=== PATIENT | male | born 1990 | race Two or more races ===

== ENCOUNTER 2019-09-14 10:28 | Emergency (ER) | payer OTHER ==
[~2019-09-14] VITALS: Ht 175.3 cm; Wt 79.5 kg
[2019-09-14 11:07] VITALS: BP 109/51
--- NOTE | 2019-09-14 11:11 | PHYS DOC ---
Past Medical History Past Medical History: No Pertinent History Past Surgical History: No Surgical History Smoking Status: Never Smoker Alcohol Use: None Drug Use: None Adult General Chief Complaint Chief Complaint: SORE THROAT HPI HPI Patient is a 29-year-old male who presents to the emergency department for evaluation. He states he began having a sore throat yesterday along with some fever and myalgias. He has not had any runny nose or cough. He was seen in the emergency department at [facility], and has paperwork that states he was diagnosed with strep pharyngitis and was given a prescription for Pen-Vee K. He states he has taken 2 doses but is not better. He states he had difficulty sleeping last night secondary to pain in his throat. He has several family members in the emergency department with similar symptoms. He has not taken any [id number] analgesics at this time. He denies any shortness of breath, headache, vision changes, mental status changes, or any other concerns. He has not had any voice changes. Patient states that they did do a strep swab at the hospital yesterday, but he is uncertain if the test was positive or negative. Review of Systems Review of Systems Constitutional: Denies lethargy or chills [] Eyes: Denies change in visual acuity, redness, or eye pain [] HENT: Denies nasal congestion. Reports sore throat [] Respiratory: Denies cough or shortness of breath [] GI: Denies abdominal pain, nausea, vomiting, bloody stools or diarrhea [] : Denies dysuria or hematuria [] Musculoskeletal: Denies back pain or joint pain [] Integument: Denies rash or skin lesions [] Neurologic: Denies headache, focal weakness or sensory changes [] Endocrine: Denies polyuria or polydipsia [] All other systems were reviewed and found to be within normal limits, except as documented in this note. Current Medications Current Medications Current Medications Medications (Trade) Dose Ordered Sig/[place] Start Time Stop Time Status Last Admin Dose Admin Ibuprofen (Motrin) 600 mg 1X ONCE 09/14/19 11:15 09/14/19 11:21 DC 09/14/19 11:26 600 MG Allergies Allergies Allergies Coded Allergies Type Severity Reaction Last Updated Verified No Known Drug Allergies 04/22/15 No Physical Exam Physical Exam PHYSICAL EXAM: CONSTITUTIONAL: Well developed, well nourished HEAD: normocephalic, atraumatic EENT: PERRL, EOMI. Conjunctivae normal color, sclerae non-icteric; moist mucous membranes. The oropharynx is erythematous, the tonsils are enlarged bilaterally, there is no peritonsillar edema, there is no exudate. Airway is patent. Uvula is midline. There is mildly tender submandibular lymphadenopathy bilaterally. Voice is normal. NECK: Supple, non-tender; no meningismus. LUNGS: Lungs CTA, breathing even and unlabored. Normal air movement. HEART: Regular rate and rhythm, no murmur CHEST: No deformity; non-tender ABDOMEN: The abdomen is soft, and non-tender, no masses or bruits. EXTREM: Normal ROM; no deformity, no calf tenderness. Normal pulses palpable in all extremities. There is no pedal edema. SKIN: No rash; no diaphoresis NEURO: Alert; normal speech and cognition; CN's grossly intact; strength grossly intact without focal deficit. BACK: No CVA TTP. Current Patient Data Vital Signs Vital Signs Date Time Temp Pulse Resp B/P (MAP) Pulse Ox O2 Delivery O2 Flow Rate FiO2 09/14/19 11:07 100.1 130 18 109/51 (70) 97 Room Air 100.1 Lab Values Laboratory Tests Test 09/14/19 11:00 Influenza Type A Antigen Negative (NEGATIVE) Influenza Type B Antigen Negative (NEGATIVE) Group A Streptococcus Rapid Negative (NEGATIVE) EKG EKG [] Radiology/Procedures Radiology/Procedures [] Course & Med Decision Making Course & Med Decision Making Pertinent Labs studies reviewed. (See chart for details) [] Discussed home care and expectant management, the need for close follow-up and return precautions. Dragon Disclaimer Dragon Disclaimer This electronic medical record was generated, in whole or in part, using a voice recognition dictation system. Departure Departure Impression: Primary Impression: Pharyngitis Disposition: HOME, SELF-CARE Condition: STABLE Referrals: VISHNU HERNANDEZ MD (PCP) Patient Instructions: Viral and Bacterial Pharyngitis Additional Instructions: Tylenol and Motrin as needed for fever and pain. Warm liquids and soups may help improve your symptoms. Continue taking your previously prescribed antibiotics. MAUREEN PRICE MD Sep 14, 2019 11:11
[2019-09-14] MEDS ORDERED: IBUPROFEN 200 MG TABLET. PO ONE (11:15)
[2019-09-14 11:52] LABS: INFLUENZA A PATIENT NEGATIVE (NEGATIVE); INFLUENZA B PATIENT NEGATIVE (NEGATIVE)
== END 2019-09-14 12:29 | disposition home or self-care (01) ==
LOC: ER 10:28
DX: J02.9 Acute pharyngitis, unspecified (principal); R50.9 Fever, unspecified; M79.10 Myalgia, unspecified site
CPT/HCPCS: 87070; 87804; 87880; 99283

== ENCOUNTER 2020-01-22 12:55 | Emergency (ER) | payer OTHER ==
[~2020-01-22] VITALS: Ht 175.3 cm; Wt 77.2 kg
[2020-01-22] MEDS ORDERED: IBUP-1007 PO (13:34)
[2020-01-22] MEDS ORDERED: KETOROLAC 30 MG/ML VIAL. IM ONE (13:45)
--- NOTE | 2020-01-22 13:53 | PHYS DOC ---
Past Medical History Past Medical History: No Pertinent History Past Surgical History: No Surgical History Smoking Status: Never Smoker Alcohol Use: None Drug Use: None General Adult EDM: Chief Complaint: LOWER BACK PAIN OR INJURY HPI: HPI: Patient is a 29 year old male presenting with chief complaint of back pain. Happened yesterday while he was lifting a box at work diffuse bilateral lower back no numbness no tingling no bowel bladder incontinence no other risk factors or concerns. No direct trauma has not tried anything for relief Review of Systems: Review of Systems: Constitutional: Denies fever or chills. [] Eyes: Denies change in visual acuity. [] HENT: Denies nasal congestion or sore throat. [] Respiratory: Denies cough or shortness of breath. [] Neurologic: Denies headache, focal weakness or sensory changes. [] Endocrine: Denies polyuria or polydipsia. [] Lymphatic: Denies swollen glands. [] Psychiatric: Denies depression or anxiety. [] Heart Score: Risk Factors: Risk Factors: DM, Current or recent (<one month) smoker, HTN, HLP, family history of CAD, obesity. Risk Scores: Score 0 - 3: 2.5% MACE over next 6 weeks - Discharge Home Score 4 - 6: 20.3% MACE over next 6 weeks - Admit for Clinical Observation Score 7 - 10: 72.7% MACE over next 6 weeks - Early Invasive Strategies Current Medications: Current Medications Medications (Trade) Dose Ordered Sig/[facility] Start Time Stop Time Status Last Admin Dose Admin Ketorolac Tromethamine (Toradol 30mg Vial) 30 mg 1X ONCE 01/22/20 13:45 01/22/20 13:46 DC Allergies: Allergies: Allergies Coded Allergies Type Severity Reaction Last Updated Verified No Known Drug Allergies 04/22/15 No Physical Exam: PE: Constitutional: Well developed, well nourished, no acute distress, non-toxic appearance. [] HENT: Normocephalic, atraumatic, bilateral external ears normal, oropharynx moist, no oral exudates, nose normal. [] Eyes: PERRLA, EOMI, conjunctiva normal, no discharge. [] Neck: Normal range of motion, no tenderness, supple, no stridor. [] Pulmonary: Normal respiratory effort no increased work of breathing no obvious chest wall trauma Abdomen: Bowel sounds normal, soft, no tenderness, no masses, no pulsatile masses. [] Skin: Warm, dry, no erythema, no rash. [] Back: There is some diffuse tenderness no focal midline tenderness no trauma identified Extremities: No tenderness, no cyanosis, no clubbing, ROM intact, no edema. [] Neurologic: Alert and oriented X 3, normal motor function, normal sensory function, no focal deficits noted. [] Psychologic: Affect normal, judgement normal, mood normal. [] Current Patient Data: Vital Signs: Vital Signs Date Time Temp Pulse Resp B/P (MAP) Pulse Ox O2 Delivery O2 Flow Rate FiO2 01/22/20 13:15 97.9 85 15 156/83 (107) 97 97.9 EKG: EKG: [] Radiology/Procedures: Radiology/Procedures: [] Course & Med Decision Making: Course & Med Decision Making Pertinent Labs and Imaging studies reviewed. (See chart for details) [] Patient is a well-appearing young male with back pain after lifting a box no neurologic features at all there is good strength and sensation noted throughout bilateral lower extremities and no signs of cauda equina by history or physical. Prescription for Motrin was provided and patient was given a work note for couple days off of work instructed on the importance of increasing core strength and using good body mechanics when lifting. [place] Disclaimer: [place] Disclaimer: This electronic medical record was generated, in whole or in part, using a voice recognition dictation system. Departure Departure Impression: Primary Impression: Back pain Disposition: HOME, SELF-CARE Condition: STABLE Patient Instructions: Back Pain, Adult, [id number]-[id number] Scripts Ibuprofen (IBUPROFEN) 600 Mg Tablet 600 MG PO PRN Q6HRS PRN for INFLAMMATION, #15 TAB Prov: MATTI LANDIN MD 01/22/20 Justicifation of Admission Dx: Justifications for Admission: Justification of Admission Dx: N/A MATTI LANDIN MD Jan 22, 2020 13:53
[2020-01-22 14:04] VITALS: BP 138/78
== END 2020-01-22 14:05 | disposition home or self-care (01) ==
LOC: ER 12:55
DX: M54.5 Low back pain (principal); X50.0XXA Overexertion from strenuous movement or load, initial encounter; Y93.89 Activity, other specified; Y92.69 Other specified industrial and construction area as the place of occurrence of the external cause; Y99.0 Civilian activity done for income or pay
CPT/HCPCS: 96372; 99283; J1885

== ENCOUNTER 2020-03-06 16:45 | Emergency (ER) | payer OTHER ==
[~2020-03-06] VITALS: Ht 175.3 cm; Wt 75.3 kg
[~2020-03-06 16:45] MED LIST: IBUP-1007 PO
[2020-03-06 17:23] VITALS: BP 142/85
[2020-03-06] MEDS ORDERED: METH4TAB2 PO (17:36)
[2020-03-06] MEDS ORDERED: AZIT250T6 PO (17:36)
[2020-03-06] MEDS ORDERED: IBUP-1007 PO (17:36)
--- NOTE | 2020-03-06 17:40 | PHYS DOC ---
Past Medical History Past Medical History: No Pertinent History Past Surgical History: No Surgical History Smoking Status: Never Smoker Alcohol Use: None Drug Use: None General Adult EDM: Chief Complaint: ABSCESS HPI: HPI: Patient is a 29 year old male who presents with was eating popcorn 2 days ago and bit the left inner cheek very hard. He states since then he has had pain and some facial swelling in the cheek. There is only tenderness to the inner mucous membrane with palpation. There is no hardness, no cellulitis, no abscess pocket, no fevers. Rates his pain 8 out of 10. He denies any dental pain. I can see when looking inside the mouth where his teeth bit the inside of his mouth. There is no drainage or open sore. No trismus. No swelling of the throat no redness or exudates. Uvula midline and nonswollen. Review of Systems: Review of Systems: Constitutional: Denies fever or chills. [] Eyes: Denies change in visual acuity. [] HENT: Denies nasal congestion or sore throat. Left cheek swelling. [] Respiratory: Denies cough or shortness of breath. [] Cardiovascular: Denies chest pain or edema. [] GI: Denies abdominal pain, nausea, vomiting, bloody stools or diarrhea. [] : Denies dysuria. [] Musculoskeletal: Denies back pain or joint pain. [] Integument: Denies rash. Left inner cheek mucosal tooth garza and tenderness, [] Neurologic: Denies headache, focal weakness or sensory changes. [] Endocrine: Denies polyuria or polydipsia. [] Lymphatic: Denies swollen glands. [] Psychiatric: Denies depression or anxiety. [] Heart Score: Risk Factors: Risk Factors: DM, Current or recent (<one month) smoker, HTN, HLP, family history of CAD, obesity. Risk Scores: Score 0 - 3: 2.5% MACE over next 6 weeks - Discharge Home Score 4 - 6: 20.3% MACE over next 6 weeks - Admit for Clinical Observation Score 7 - 10: 72.7% MACE over next 6 weeks - Early Invasive Strategies Allergies: Allergies: Allergies Coded Allergies Type Severity Reaction Last Updated Verified No Known Drug Allergies 04/22/15 No Physical Exam: PE: Constitutional: Well developed, well nourished, no acute distress, non-toxic appearance. [] HENT: Normocephalic, atraumatic, bilateral external ears normal, oropharynx moist, no oral exudates, nose normal. Left inner cheek mucosal teeth garza. [] Eyes: PERRLA, EOMI, conjunctiva normal, no discharge. [] Neck: Normal range of motion, no tenderness, supple, no stridor. [] Cardiovascular:Heart rate regular rhythm, no murmur [] Lungs & Thorax: Bilateral breath sounds clear to auscultation [] Abdomen: Bowel sounds normal, soft, no tenderness, no masses, no pulsatile ma sses. [] Skin: Warm, dry, no erythema, no rash. Left cheek swelling 1+.[] Back: No tenderness, no CVA tenderness. [] Extremities: No tenderness, no cyanosis, no clubbing, ROM intact, no edema. [] Neurologic: Alert and oriented X 3, normal motor function, normal sensory function, no focal deficits noted. [] Psychologic: Affect normal, judgement normal, mood normal. [] EKG: EKG: [] Radiology/Procedures: Radiology/Procedures: [] Course & Med Decision Making: Course & Med Decision Making Pertinent Labs and Imaging studies reviewed. (See chart for details) See HPI. Speaks in full clear sentences. Alert and oriented x4. Ambulatory with a steady gait. Patient is given a Medrol Dosepak, Z-Flaquito, ibuprofen. He is to follow-up with his primary care provider. I have spoken to Dr Benoit concerning patient findings and care plan. [] [place] Disclaimer: Pam Disclaimer: This electronic medical record was generated, in whole or in part, using a voice recognition dictation system. Departure Departure Impression: Primary Impression: Cheek swelling Disposition: HOME, SELF-CARE Condition: STABLE Referrals: VISHNU HERNANDEZ MD (PCP) Patient Instructions: Medical Screening Exam Additional Instructions: Follow up with primary care provider. Take medication as prescribed. If worsens go to primary care provider. Scripts Ibuprofen (IBUPROFEN) 600 Mg Tablet 600 MG PO PRN Q6HRS PRN for INFLAMMATION, #20 TAB Prov: TRACY TUCKER INFORMATION OPERATOR 03/06/20 Azithromycin (AZITHROMYCIN TABLET) 250 Mg Tablet 1 PKG PO UD for 5 Days, #6 TAB 0 Refills 2 the first day followed by 1 for days 2-5 Prov: TRACY TUCKER APRN 03/06/20 Methylprednisolone (MEDROL) 4 Mg Tab.ds.pk 1 PKG PO UD, #1 PKG Prov: TRACY TCUKER 03/06/20 Justicifation of Admission Dx: Justifications for Admission: Justification of Admission Dx: N/A TRACY TUCKER APRN Mar 06, 2020 17:40
== END 2020-03-06 18:01 | disposition home or self-care (01) ==
LOC: ER 16:45
DX: R22.0 Localized swelling, mass and lump, head (principal)
CPT/HCPCS: 99283